=== PATIENT | male | born 1995 | race Asian ===

== ENCOUNTER 2023-11-17 08:58 | Emergency (ER) | payer BC ==
[~2023-11-17] VITALS: Ht 167.6 cm; Wt 74.8 kg
[2023-11-17 09:17] VITALS: BP_SYST 114; PULSE 90; RESP 18; TEMP 97; O2SAT 97
[2023-11-17] MEDS: KETOROLAC TROMETHAMINE 60 MG/2 ML VIAL IM ONE (09:46)
[2023-11-17] MEDS: HYDROcodone/ACETAMIN 10-325 MG TAB PO ONE (09:46)
[2023-11-17] MEDS ORDERED: SOM350 PO (10:43)
[2023-11-17] MEDS ORDERED: IBUP-1969 PO (10:43)
[2023-11-17 11:03] VITALS: BP_SYST 114; PULSE 90; RESP 18; TEMP 97; O2SAT 97
== END 2023-11-17 10:58 | disposition home or self-care (01) ==
LOC: SED 08:58
DX: S33.5XXA Sprain of ligaments of lumbar spine, initial encounter (principal); X50.0XXA Overexertion from strenuous movement or load, initial encounter; Y93.89 Activity, other specified; Y92.89 Other specified places as the place of occurrence of the external cause; Y99.8 Other external cause status
CPT/HCPCS: 99283; 72100; 96372; J1885